=== PATIENT | female | born 1995 | race African-American/Black ===

== ENCOUNTER 2017-06-04 16:46 | Emergency (ER) | payer OTHER ==
[~2017-06-04] VITALS: Ht 163.8 cm; Wt 100.0 kg
[~2017-06-04 16:46] MED LIST: PNVPAK PO; VITA25TA5 PO
[2017-06-04 16:52] VITALS: BP 130/76; PULSE 73; RESP 18; TEMP 98.5; O2SAT 100
[2017-06-04] MEDS ORDERED: POLY10O RIGHT EYE (19:19)
--- NOTE | 2017-06-04 19:21 | PD ---
HPI Chief Complaint: Eye Problems/Injury Time Seen by Provider: 19:18 Travel History International Travel<30 days: No Contact w/Intl Traveler<30days: No Traveled to known affect area: No History of Present Illness HPI 21-year-old female presents for evaluation of right eye redness, itching, matting and drainage. Symptoms started yesterday. No aggravating or relieving factors. Denies any ocular pain, denies use of contacts or glasses. She has had cough and congestion for the past 2 days. No sick contacts. No other complaints at this time. PFSH Past Medical History ?: Not LMP: on now Social History Alcohol Use: No Tobacco Use: No Substance Use: No Allergies-Medications (Allergen,Severity, Reaction): Coded Allergies: No Known Allergies (Unverified , 06/10/15) Reported Meds & Prescriptions Reported Meds & Active Scripts Active Pnv Ob+Dha ( Multivitamins) [place] 1 Cap PO DAILY Vitamin B-6 (Pyridoxine Hcl) 25 Mg Tab 25 Mg PO Q8HR PRN Review of Systems General / Constitutional: No: Fever, Chills Eyes: Positive: Drainage, Redness, Other (Positive for matting, itching, crusting), No: Pain HENT: Positive: Congestion Respiratory: Positive: Cough Physical Exam Narrative GENERAL: Well-developed well-nourished female no acute distress SKIN: Warm and dry. HEAD: Atraumatic. Normocephalic. EYES: Pupils equal and round reactive to light extraocular muscles are intact. Right eye conjunctival injection is present. No pain with extraocular range of motion, no proptosis. ENT: No nasal bleeding or discharge. Mucous membranes pink and moist. NECK: Trachea midline. No JVD. CARDIOVASCULAR: Regular rate and rhythm. No murmur appreciated. RESPIRATORY: No accessory muscle use. Clear to auscultation. Breath sounds equal bilaterally. Data Data Last Documented VS Vital Signs Date Time Temp Pulse Resp B/P (MAP) Pulse Ox O2 Delivery O2 Flow Rate FiO2 06/04/17 16:52 98.5 73 18 130/76 (94) 100 MDM Medical Decision Making Medical Screen Exam Complete: Yes Emergency Medical Condition: Yes Medical Record Reviewed: Yes Differential Diagnosis Bacterial conjunctivitis versus viral conjunctivitis versus allergic conjunctivitis versus iritis versus endophthalmitis versus keratitis versus acute glaucoma Narrative Course Examination is consistent with conjunctivitis of the right eye. She will be discharged with Polytrim ophthalmic solution. Diagnosis Primary Impression: Conjunctivitis Departure Forms: Tests/Procedures, Work Release Enter return to work date: June 07, 2017 Additional Instructions: Medication as prescribed. Wash hands frequently. Wash pillow and pillowcase. Return for any emergent medical conditions. Med/Other Pt SpecificInfo: Prescription(s) given Scripts Polymyxin B-Trimethoprim Opth Drops (Polytrim Opth Drops) 10,000-0.1 Unit/Ml-% Soln 1 DROP RIGHT EYE Q6HR for Mgmt Bacterial Infection for 7 Days, #1 BOTTLE 0 Refills Prov: Ha Abarca MD 06/04/17 Disposition: 01 DISCHARGE HOME Condition: Stable Florencio Pennington Jun 04, 2017 19:21
== END 2017-06-04 19:43 | disposition home or self-care (01) ==
LOC: NED 16:46 → NEPK 19:43
DX: H10.9 Unspecified conjunctivitis (principal); R05 Cough
CPT/HCPCS: 99283